=== PATIENT | female | born 2000 | race Caucasian/White ===

== ENCOUNTER → 2022-10-27 12:06 | Outpatient (CLI) | payer BC, SELFPAY ==
--- NOTE | 2022-10-27 12:15 | DI.MRI.S_ITS ---
PROCEDURE: MR LUMBAR SPINE WO CON INDICATIONS: Intervertebral disc disorders lumbar region TECHNIQUE: Noncontrast sagittal T1 spin echo and T2 fast echo, sagittal STIR, and T2 fast spin echo through the lumbar spine. In cases with scoliosis, additional coronal T2 fast spin echo may be performed. COMPARISON: None. FINDINGS: Image quality: Excellent. Alignment and Curvature: There is normal bony alignment. Bone Marrow: Marrow is of normal overall signal. No acute vertebral body compression fractures. Spinal Cord: Conus medullaris terminates at the L1-L2 level. Visualized cord demonstrates normal signal and size. Paraspinous Soft Tissues: No paravertebral masses. T12-L1: Normal appearance. L1-L2: Normal appearance. L2-L3: Normal appearance. L3-L4: Normal appearance. L4-L5: Normal appearance. L5-S1: Mild central posterior disc protrusion. Disc material does not abut any nerve root structures. There is no canal stenosis or foraminal stenosis. IMPRESSION: 1. Mild central posterior disc protrusion at L5-S1 without canal stenosis or nerve root compromise. 2. Otherwise unremarkable lumbar spine MRI. No canal stenosis or foraminal stenosis. Dictated by: Reinier Lang M.D. on 10/27/2022 at 13:18 Approved by: Reinier Lang M.D. on 10/27/2022 at 13:20
== END ==
PROVIDERS: Referring Provider Orthopaedic Surgery Orthopaedic Surgery of the Spine; Visit Provider Orthopaedic Surgery Orthopaedic Surgery of the Spine
DX: M51.16 Intervertebral disc disorders with radiculopathy, lumbar region (principal); M51.17 Intervertebral disc disorders with radiculopathy, lumbosacral region
CPT/HCPCS: 72148